=== PATIENT | male | born 1985 | race Caucasian/White ===

== ENCOUNTER 2024-12-26 18:06 | Emergency (ER) | payer OTHER, SELFPAY ==
[2024-12-26 18:08] VITALS: BP 150/118
[2024-12-26 19:35] VITALS: BP 162/113
--- NOTE | 2024-12-26 21:33 | ED.GENMED ---
History of Present Illness
General
Chief Complaint: Crisis Evaluation
Source: patient
Exam Limitations: none
Time Seen by Provider: 12/26/24 18:44
Nursing documentation reviewed up to this point in time: agreed with
History of Present Illness
History of Present Illness:
39-year-old male presenting to the episode at home where he felt very nervous anxious. His family was concerned that he seemed to be acting odd and was making strange comments including 'I am going to leave and not come back' the comments were very
vague and unclear what they specifically meant according to the family. He denies any specific chest pain shortness of breath. Symptoms resolved prior to my assessment. He does not have a long history of anxiety and has previously been on
treatment for this but no longer takes it (lexapro)
Review of Systems
Review of Systems
Allergies reviewed?: Yes
All Other Systems: ROS reviewed and negative except as documented in HPI and ROS
Phy Exam
Physical Exam
Physical Exam:
GENERAL: Alert , in no apparent distress
EYE: pupils equal and reactive
NECK: Supple, no significant adenopathy.
ENT: o/p clr, mmm.
CARDIAC: Regular rate and rhythm .
LUNGS: Clear breath sounds bilaterally, no acute respiratory distress, no wheezes/rales/rhonchi
ABDOMEN: Soft, without focal tenderness, no r/g, no cvat
NEUROLOGICAL: Alert and oriented, no focal neuro deficits
SKIN: Warm and dry, skin intact.
MUSCULOSKELETAL: No edema, well perfused.
PSYCH: Normal and appropriate interaction.
Course
Orders/Labs/Results
Orders:
Orders
12/26/24 20:48
Crisis Consult Urgent
Reason for Consult: psych resources for f/u
Vital Signs
Initial and Last Documented VS:
Initial Vital Signs
Temp Pulse Resp BP Pulse Ox
98.5 F 129 20 150/118 99
12/26/24 18:08 12/26/24 18:08 12/26/24 18:08 12/26/24 18:08 12/26/24 18:08
Last Documented Vital Signs
Temp Pulse Resp BP Pulse Ox
98.5 F 88 18 145/98 100
12/26/24 18:08 12/26/24 22:00 12/26/24 22:00 12/26/24 22:00 12/26/24 22:00
MDM/Problems Addressed
MDM/Problems Addressed:
39-year-old male presenting to the emergency department today with concerns of anxiety. Claims his symptoms are fully resolved. Denies any thoughts of harming himself or others. Denies any drug use or alcohol use. Initial heart rate elevated but
fully resolved by the time of my assessment. He was seen by crisis no evidence of emergent psychiatric process advised for close outpatient follow-up. Return precautions given.
*Pulse Oximetry
SaO2: 100
Oxygen Mode of Delivery: Room air
Patient hypoxic: no (100)
*Critical Care Note
Total Time (30-74mins, 75-104mins- exclusive of procedures): Not Applicable
ED Attending Note
-
Portions of this chart may have been created with voice recognition software.� Occasional wrong word or��sound alike� substitutions may have occurred due to the inherent limitations of voice recognition software.
Discharge Plan
Departure
Patient Disposition: Home (Routine Discharge)
Date of Disposition: 12/26/24
Time of Disposition: 21:52
Patient with high blood pressure during this ER visit?: No
Condition: Good
Covid-19: Not Applicable
Discharge Problem:
Anxiety
Instructions: Anxiety, Adult (DC)
Referrals:
Braulio Almeida [Active, Psychiatry] - Follow up in 5-7 days
Luis Castillo DO [Family Provider, General]
Activity Restrictions/Additional Instructions:
You came to the emergency department today with concerns of anxiety and additional symptoms. Here had a reassuring assessment. Please follow closely with psychiatry. Return for any worsening, new or concerning symptoms.
Interventions
Interventions:
*Risk Screen - Suicide Last Done: 12/26/24 18:08
*General Assessment Last Done: 12/26/24 18:08
*Neglect/Abuse Screening Last Done: 12/26/24 22:01
*ED- Fall Risk Assessment Last Done: 12/26/24 22:01
*ED COVID-19 Vaccine History Last Done: 12/26/24 22:01
*Nursing Disposition Last Done: 12/26/24 22:01
ED-Psychological Assessment Last Done: 12/26/24 19:35
Discharge Date and Time
Discharge Date/Time: 12/26/24 22:01
Print Language: LAO
[2024-12-26 22:00] VITALS: BP 145/98
== END 2024-12-26 22:01 | disposition home or self-care (01) ==
LOC: EMR 18:06
PROVIDERS: EMERGENCY PHYSICIAN Emergency Medicine; FAMILY PHYSICIAN Internal Medicine
DX: F41.9 Anxiety disorder, unspecified (principal)
CPT/HCPCS: 99282